=== PATIENT | male | born 1980 | race Caucasian/White ===

== ENCOUNTER 2023-12-26 09:42 | Emergency (ER) | payer SELFPAY ==
[2023-12-26 10:00] VITALS: BMI 25.8
--- NOTE | 2023-12-26 10:02 | XR_ITS ---
WS: [id number] XR femur LT min 2V* [id number] REASON FOR EXAM: trauma FINDINGS: The left femur is intact without fracture. No radiopaque foreign body is identified. XR/XR femur LT min 2V* [id number] IMPRESSION: No abnormality identified.
--- NOTE | 2023-12-26 10:02 | CT_ITS ---
WS: [id number] CT angiogram lower extremity INDICATION: Laceration LEFT thigh TECHNIQUE: CT angiogram lower extremity through the popliteal fossa. Sagittal and coronal reformatted images. FINDINGS: LEFT femur appears normal. No acute fractures. Normal iliac arteries. Normal common femoral and femoral arteries. Normal LEFT deep femoral artery. No evidence of laceration or extravasation. Normal popliteal arteries bilaterally to the tibioperoneal trunk Soft tissue laceration distal LEFT lateral thigh with soft tissue edema and subcutaneous emphysema. S mall amount of intramuscular emphysema. No large hematoma or active extravasation. CT/[place] [id number] IMPRESSION: 1. Normal LEFT thigh arteries. No evidence of laceration 2. Normal LEFT femur 3. Soft tissue laceration in the distal LEFT lateral thigh with soft tissue ed jerald. Small amount of underlying subcutaneous and intramuscular emphysema. No ac tive extravasation or hematoma.
[2023-12-26 10:10] VITALS: BP 145/86; PULSE 61; RESP 18; TEMP 36.8; O2SAT 99
--- NOTE | 2023-12-26 10:21 | W.ED.TRAUMA ---
HPI - Trauma General: Chief Complaint: Trauma Stated Complaint: laceration Time Seen by Provider: 12/26/23 09:45 History of Present Illness: 43-year-old male presents to the emergency room with a left leg laceration. He was working with a skid steer doing some fence work and he intermit inadvertently was caught between the front of the machinery and a fence pole. His legs were crushed and he has a puncture wound on his left lateral thigh. On arrival he is holding direct pressure he is uncertain of his last tetanus shot. He denies any other history. Associated symptoms: Denies abdominal pain, back pain, chest pain, chills or fever(s) Related Data Previous Rx's Medication Instructions Recorded amoxicillin 875 mg-potassium 1 tab PO BID #10 tabs 12/26/23 clavulanate 125 mg tablet hydrocodone 5 mg-acetaminophen 325 1 tab PO Q6H PRN pain #20 tabs 12/26/23 mg tablet Allergies Allergy/AdvReac Type Severity Reaction Status Date / Time No Known Drug Allergies Allergy Unknown Verified 12/26/23 10:20 Review of Systems Const: Denies: fever(s) or chills Card: Denies: chest pain Resp: Denies: dyspnea GI: Denies: abdominal pain : Denies: dysuria, urinary frequency or urinary urgency Musc: Denies: neck pain or back pain Skin/Breast: Denies: rash Physical Exam Const: GENERAL APPEARANCE: cooperative ORIENTATION/CONSCIOUSNESS: Yes awake, Yes oriented to person, Yes oriented to place and Yes oriented to time HENMT: COMMON NORMALS: normocephalic, atraumatic and hearing grossly normal bilaterally HEAD & SCALP: normocephalic and atraumatic Resp: COMMON NORMALS: normal respiratory effort, No retractions, No use of accessory muscles and clear to auscultation bilaterally AUSCULTATION: clear to auscultation bilaterally Cardio: COMMON NORMALS: regular rate, regular rhythm and No murmurs present (Cardio) RATE: regular rate RHYTHM: regular rhythm GI: COMMON NORMALS: Soft to palpation and No hepatosplenomegaly present AUSCULTATION: Yes normoactive bowel sounds PALPATION: Yes Soft to palpation, No Tenderness to palpation present (GI), No Guarding due to palpation present (GI) and Yes No hepatosplenomegaly present Extremity: COMMON NORMALS: normal to inspection, capillary refill normal, no clubbing, cyanosis or edema, no calf tenderness and no pedal edema OTHER: Abrasion of the left anterior thigh with 2 cm puncture wound. It is open with mild bleeding. Left lower extremity neurovascularly intact Neuro: SENSORIUM/ORIENTATION: Yes oriented to person, Yes oriented to place and Yes oriented to time Skin: COMMON NORMALS: no rashes or lesions noted GENERAL SKIN EXAM: no rashes or lesions noted Procedures Laceration Laceration 1: Site: lower extremity Side (If applicable): left Size (cm): 2 Description: linear Local Anesthetic: lidocaine 1% and with epi Amount of anesthesia used (mL): 2 Pre-repair: wound explored and irrigated extensively Skin layer closed with: nylon Size (cm): 3-0 Number of sutures: 2 Technique: simple, interrupted Size: 3-0 Technique: simple, interrupted Course Vital Signs: Vital signs: Vital Signs Temperature 98.2 F 12/26/23 10:10 Pulse Rate 65 12/26/23 13:13 Respiratory Rate 16 12/26/23 13:13 Blood Pressure 144/71 12/26/23 13:13 Pulse Oximetry 99 12/26/23 13:13 Oxygen Delivery Me thod Room Air 12/26/23 12:41 MDM - Trauma Medical Decision Making Labs and imaging reviewed does have a elevated white count I think that is her stress reaction to swelling. Remainder of his labs are normal x-ray of the femur does not show any fractures CTA of the lower extremity does not show any significant vascular injury. Neurovascularly he is intact on exam. Simple sutures applied. Will give him pain medications he was given Ancef his tetanus was updated discharged home on Augmentin for 5 days follow-up with primary care elevate the leg apply ice develops fever sweats chills or active bleeding return Lab Data 12/26/23 10:19 12/26/23 10:19 Radiology Impressions Femur X-Ray 12/26/23 10:02 IMPRESSION: No abnormality identified. Lower Extremity CTA 12/26/23 10:02 IMPRESSION: 1. Normal LEFT thigh arteries. No evidence of laceration 2. Normal LEFT femur 3. Soft tissue laceration in the distal LEFT lateral thigh with soft tissue edema. Small amount of underlying subcutaneous and intramuscular emphysema. No active extravasation or hematoma. Laboratory Results WBC 17.07 10^3/uL (3.29-11.43) H 12/26/23 10:19 RBC 4.56 10^6/uL (3.85-5.65) 12/26/23 10:19 Hgb 14.40 g/dL (11.27-16.99) 12/26/23 10:19 Hct 42.9 % (37-53) 12/26/23 10:19 MCV 94.1 fl (82-101) 12/26/23 10:19 MCH 31.6 pg (27-33) 12/26/23 10:19 MCHC 33.6 g/dL (30-55) 12/26/23 10:19 RDW 13.1 % (12.1-15.1) 12/26/23 10:19 Plt Count 218 10^3/cmm (157-399) 12/26/23 10:19 MPV 9.6 fL (7.4-10.4) 12/26/23 10:19 Neut % (Auto) 74.0 % 12/26/23 10:19 Lymph % (Auto) 20.2 % 12/26/23 10:19 [place] % (Auto) 4.2 % 12/26/23 10:19 Eos % (Auto) 0.8 % 12/26/23 10:19 Baso % (Auto) 0.3 % 12/26/23 10:19 Neut # (Auto) 12.66 10^3/uL (1.8-7.7) H 12/26/23 10:19 Lymph # (Auto) 3.4 10^3/uL (0.8-4.8) 12/26/23 10:19 [place] # (Auto) 0.7 10^3/uL (0.2-0.9) 12/26/23 10:19 Eos # (Auto) 0.1 10^3/uL (0.0-0.8) 12/26/23 10:19 Baso # (Auto) 0.1 10^3/uL (0.0-0.1) 12/26/23 10:19 Nucleated RBC % (auto) 0 % 12/26/23 10:19 Nucleated RBCs # 0.0 /100WBC 12/26/23 10:19 Sodium 136 mmol/L (136-145) 12/26/23 10:19 Potassium 3.9 mmol/L (3.5-5.1) 12/26/23 10:19 Chloride 101 mmol/L (98-107) 12/26/23 10:19 Carbon Dioxide 24 mmol/L (22-29) 12/26/23 10:19 Anion Gap 14.9 (5-19) 12/26/23 10:19 BUN 18 mg/dL (6-20) 12/26/23 10:19 Creatinine 0.8 mg/dL (0.7-1.2) 12/26/23 10:19 GFR Calculation 106.0 mL/min (90-130) 12/26/23 10:19 Glucose 128 mg/dL (65-115) H 12/26/23 10:19 Calculated Osmolality 286 mOsm/kg (285-295) 12/26/23 10:19 Calcium 8.4 mg/dL (8.5-10.5) L 12/26/23 10:19 Total Bilirubin 0.5 mg/dL (0.15-1.2) 12/26/23 10:19 AST 18 U/L (0-40) 12/26/23 10:19 ALT 22 U/L (0-41) 12/26/23 10:19 Alkaline Phosphatase 82 U/L (40-130) 12/26/23 10:19 Total Protein 6.3 g/dL (6.6-8.7) L 12/26/23 10:19 Albumin 4.2 g/dL (3.5-5.2) 12/26/23 10:19 Globulin 2.1 g/dL (1.3-4.6) 12/26/23 10:19 All radiology interpretation(s) finalized by discharge Discharge Plan Discharge Patient Disposition: Home Clinical Impression: Laceration of left thigh, Crushing injury of left thigh Condition: Stable Prescriptions: New amoxicillin-pot clavulanate 875-125 mg tablet 1 tab PO BID Qty: 10 0RF hydrocodone-acetaminophen 5-325 mg tablet 1 tab PO Q6H PRN (Reason: pain) Qty: 20 0RF Discharge Orders: Discharge ED (Routine); Ordered 12/26/23 Ordered By: Kael Mendenhall Discharge Diet: Usual diet Discharge Activity: Resume usual activity Patient Instructions: Opioid Safety, Pain Management Activity Restrictions/Additional Instructions: Thank you for choosing [facility] for your healthcare needs today. It is very important that you follow up as instructed or that you return to the Emergency Department should you have concerns or if your condition changes or worsens in any way. You are seen today after an injury to your left thigh. The CT did not show any significant vascular injury. The wound was closed with sutures he should be removed in approximately 10 days. He can apply topical antibiotic ointment to the laceration itself. You did have significant crush injury recommend that you follow-up with your doctor in the next 2 to 3 days to repeat lab tests including hemoglobin CPK and kidney function testing. Recommend prophylactic antibiotics Augmentin 1 pill twice a day for 5 days. If there is any fever redness or signs of infection return to the emergency room you are also given pain medicines. Recommend elevating the leg and applying ice 3-4 times a day 20 minutes at a time. Coding Level of Care Code ED [employer]lectual [employer] Legal Assistant for Melanie Pete
[2023-12-26 10:28] LABS: Basophils # 0.1 10^3/uL (0.0-0.1); Basophils % 0.3 %; Eosinophils # 0.1 10^3/uL (0.0-0.8); Eosinophils % 0.8 %; Hematocrit 42.9 % (37-53); Lymphocytes # 3.4 10^3/uL (0.8-4.8); Lymphocytes % 20.2 %; Mean Corpuscular HGB Conc 33.6 g/dL (30-55); Mean Corpuscular Hemoglobin 31.6 pg (27-33); Mean Corpuscular Volume 94.1 fl (82-101); Mean Platelet Volume 9.6 fL (7.4-10.4); Monocytes # 0.7 10^3/uL (0.2-0.9); Monocytes % 4.2 %; Neutrophils # 12.66 10^3/uL (1.8-7.7); Nucleated Red Blood Cells % 0 %; Platelet Count 218 10^3/cmm (157-399); Red Blood Count 4.56 10^6/uL (3.85-5.65); Red Cell Distribution Width 13.1 % (12.1-15.1); White Blood Count 17.07 10^3/uL (3.29-11.43)
[2023-12-26] MEDS: ondansetron 2 mg/ML SDV 2 mL 4 MG IVP (10:29)
[2023-12-26 10:33] VITALS: RESP 20; O2SAT 99
[2023-12-26] MEDS: morphine 4 mg/mL SDV 1 mL IVP (10:33)
[2023-12-26] MEDS: ceFAZolin 1,000 mg SDV 1000 MG IVP (10:34)
[2023-12-26] MEDS: tetanus-dipt-pertussis 0.5 mL SDV IM (10:34)
[2023-12-26 10:54] LABS: Alanine Aminotransferase 22 U/L (0-41); Albumin Level 4.2 g/dL (3.5-5.2); Alkaline Phosphatase 82 U/L (40-130); Anion Gap 14.9 (5-19); Aspartate Amino Transferase 18 U/L (0-40); Blood Urea Nitrogen 18 mg/dL (6-20); Calcium 8.4 mg/dL (8.5-10.5); Carbon Dioxide 24 mmol/L (22-29); Chloride 101 mmol/L (98-107); Creatinine Clr Calc Pharmacy 158.2516; Globulin 2.1 g/dL (1.3-4.6); Glucose 128 mg/dL (65-115); Osmolality Calculated 286 mOsm/kg (285-295); Potassium 3.9 mmol/L (3.5-5.1); Sodium 136 mmol/L (136-145); Total Bilirubin 0.5 mg/dL (0.15-1.2); Total Protein 6.3 g/dL (6.6-8.7)
[2023-12-26] MEDS: iohexol 350 mg/mL 500 mL Btl (per mL) IV (11:12)
[2023-12-26] MEDS: lidocaine-epi 1% 20 mL INJ INJECTION (11:42)
[2023-12-26 11:43] VITALS: BP 146/95; PULSE 67; RESP 16; O2SAT 97
[2023-12-26 12:41] VITALS: BP 137/75; PULSE 60; RESP 16; O2SAT 97
[2023-12-26 13:13] VITALS: BP 144/71; PULSE 65; RESP 16; O2SAT 99
== END 2023-12-26 13:21 | disposition home or self-care (01) ==
PROVIDERS: Emergency Provider Family Medicine
DX: S71.112A Laceration without foreign body, left thigh, initial encounter (principal); S77.12XA Crushing injury of left thigh, initial encounter; W31.89XA Contact with other specified machinery, initial encounter; Z23 Encounter for immunization
CPT/HCPCS: 12001; 73552; 73706; 80053; 85025; 90471; 90715; 96374; 96375; 99285; J0690; J2270; J2405